=== PATIENT | female | born 1955 | race Caucasian/White ===

== ENCOUNTER 2016-11-26 13:53 | Emergency (ER) | payer OTHER ==
[~2016-11-26] VITALS: Ht 162.6 cm; Wt 79.5 kg
[2016-11-26 13:56] VITALS: BP 150/78; PULSE 92; RESP 22; O2SAT 100
--- NOTE | 2016-11-26 14:09 | ED.REPORT ---
HPI-Chest Pain 40 and Over Date of Service Nov 26, 2016 ED Provider: Michael Dumont MD Patient is a 60 year old female with a history of osteoarthritis, fibromyalgia and panic attacks who presents to the ED complaining of chest pain onset 1230. The patient states that initially thought she was having a panic attack, where she was feeling dizzy, shaky, clammy and faint. Associated symptoms include nausea and headache. Patient denies vomiting, shortness of breath, radiating pain or swelling. The states that she thought it was heart burn so she tried taking some deep breathing but it was not helping her symptoms. The chest pain resolved after about 30 minutes. She states that this felt some what similar to her panic attacks but it was worse and she doesn't generally get clammy or heart burn. Patient denies any recent long travel or illness. Nursing Notes Stated Complaint: DIZZY/NEAR SYNCOPE/CP Chief Complaint: Chest Pain Nursing Notes Reviewed: Yes Allergies: Coded Allergies: Sulfa (Sulfonamide Antibiotics) (Verified Allergy, Severe, Hives, 11/25/14) amoxicillin (Verified Allergy, Mild, Hives, 11/25/14) tetracycline (Verified Allergy, Mild, stomach upset, 11/25/14) General Time Seen by MD: 13:55 Chief Complaint Chest pain Hx Obtained From: Patient Arrived By: Walk-in Sudden in Onset?: Yes Onset Occurred: 1 - 4 hours ago Symptom Duration: 16 - 30 minutes Location: : Substernal Quality: Pressure Radiation: : Does not radiate Migration/Movement: Reports: None Severity: Current: No pain currently Severity: Maximum: Mild Similar Sx Previous: No Past Medical History Past Medical History RA osteoarthritis fibromyalgia Past Surgical History denies Smoking History Never Smoker Social History Other Social History: Good social support, Ambulatory Status Independent Review of Systems Review of Systems Note: +clammy Constitutional: Denies: Chills, Fever Respiratory: Denies: Non-productive cough, Shortness of breath Cardiovascular: Reports: Chest pain GI: Reports: Nausea, Denies: Vomiting Musculoskeletal: Denies: Back pain, Extremity swelling, Neck pain Skin: Denies Itching, Denies Rash Neurologic: Reports: Dizziness, Headache, Lightheaded, Shaking, Denies: Numbness, Weakness Complete sys rev & neg: except as marked. Physical Exam Initial Vital Signs Vital Signs (First) Date Time Temp Pulse Resp B/P Pulse Ox O2 Delivery O2 Flow Rate FiO2 11/26/16 13:56 36.8 92 22 150/78 100 Room Air Initial VS: Reviewed General/Constitutional: Awake, Alert, No acute distress Respiratory / Chest: Atraumatic, Breath sounds NL, Breath sounds = bilat, No respiratory distress Cardiovascular: Regular rhythm, Heart sounds NL, No murmurs Heart Rate / Rhythm: Positive: Tachycardia Abdomen: Atraumatic, Soft, Non-tender Lower Extremity / Pelvis / MS: Atraumatic, No edema Skin: Atraumatic, Color NL, No rash, Warm, Dry Neurologic: Oriented X3, Speech NL, No motor deficits, No sensory deficits Psychiatric: Affect NL, Mood NL Head / Eyes: Atraumatic, Normocephalic, PERRL, EOMI Interpretation & Diagnostics Lab Results Interpretation Result Diagram: 11/26/16 1430 11/26/16 1430 Test 11/26/16 14:30 11/26/16 16:16 White Blood Count 7.6th/mm3 (3.8-10.1) Red Blood Count 4.00mil/mm3 (3.90-5.20) Hemoglobin 11.6g/dL (12.0-15.6) Hematocrit 34.9% (35.0-46.0) Mean Corpuscular Volume 87.3fL (81-100) Mean Corpuscular Hemoglobin 29.0pg (27.0-35.0) Mean Corpuscular Hemoglobin Concent 33.2% (32.0-37.0) Red Cell Distribution Width 13.4% (12.3-15.4) Platelet Count 250bil/L (150-400) Neutrophils (%) (Auto) 70.2% (40-74) Lymphocytes (%) (Auto) 18.2% (14-46) Monocytes (%) (Auto) 9.8% (4-12) Eosinophils (%) (Auto) 1.1% (0-5) Basophils (%) (Auto) 0.4% (0-3) Sodium Level 137mEq/L (134-144) Potassium Level 4.4mEq/L (3.5-5.2) Chloride Level 99mEq/L (97-108) Carbon Dioxide Level 22mmol/L (18-29) Blood Urea Nitrogen 22mg/dL (8-27) Creatinine 1.08mg/dL (0.57-1.00) Estimat Glomerular Filtration Rate 74mL/min (>59) Glucose Level 92mg/dL (60-99) Calcium Level 9.9mg/dL (8.5-10.1) Magnesium Level 1.8mg/dL (1.6-2.6) Total Bilirubin 0.4mg/dL (0.0-1.2) Aspartate Amino Transf (AST/SGOT) 23U/L (0-50) Alanine Aminotransferase (ALT/SGPT) 19U/L (0-32) Alkaline Phosphatase 150U/L (25-165) Total Protein 7.9g/dL (6.4-8.4) Albumin 4.2g/dL (3.4-5.0) Troponin T < 0.010ug/L (0.0-0.011) ECG Interpretation ECG Interpretation: No ST changes Time: 14:03 Interpreted by: ED physician Normal ECG Interpretation: Normal rate (85), Normal sinus rhythm X-Ray Chest Interpretation Chest Xray Interpretation: IMPRESSION: No acute or active disease is seen in the upright portable chest. Dictated by: Augusto Serrato M.D. on 11/26/2016 at 14:21 Approved by: Augusto Serrato M.D. on 11/26/2016 at 14:22 View: Portable, 1 view Interpretation / Wet Read by: Interpret - Radiologist Re-Eval/Medical Decision Med Decision/Clinical Course 60-year-old female history of panic attacks presenting with 30 minute episodes of anxiety, chest pressure, shortness of breath. She thought it was likely a panic attack but thought she should come in for evaluation. Her vital signs are stable. No EKG changes. Her troponins are negative 2. He has no risk factors for blood clot. She is not tachycardic. Discussed with the patient she requests to go home and follow up with her primary doctor. She may benefit from outpatient stress test. She will return if she has any recurrent chest pain, difficulty breathing, any other new or worsening symptoms. Time of Eval: 16:55 Re-Evaluation/Progress Note: Discussed all results and plan for discharge. Patient understands and agrees to plan. All questions were addressed. Counseled Regarding: Diagnosis, Lab results, Need for follow-up, When/why to return to ED Discharge & Departure Primary Impression: Chest pressure Disposition: Home Discharge Condition All VS Reviewed: Yes Condition: Stable Patient Instructions: Chest Pain (ED) Additional Instructions: Your labs and chest X-ray were normal and reassuring. There was no evidence of a heart attack. It is possible this was a panic attack. An immediately dangerous cause for your symptoms was not identified today. Follow up with your primary care physician later this week. Return to the emergency department if you develop any new or concerning symptoms including chest pain that radiates into your arm, shortness of breath or sweatiness. Referrals: Edward Pang MD (PCP) Scribe Attestation Portions of this note were transcribed by Gifty Da Silva. I, Dr. Dumont personally performed the history, physical exam and medical decision-making; I reviewed and confirmed the accuracy of the information in the transcribed note. Signed by: Aimee Urena, 11/26/16 copies to: Edward Pang MD, Ben M MD Nov 26, 2016 14:09 Cata Da Silva Nov 26, 2016 14:21
--- NOTE | 2016-11-26 14:24 | DRSVH ---
PROCEDURE: X-RAY CHEST ONE VIEW, PORTABLE ([id number]) INDICATIONS: CHEST PAIN, dizziness TECHNIQUE: One view of the chest was acquired. COMPARISON: [facility], CR, XR CHEST 1VW (PORTABLE), 11/25/2014, 11:48. FINDINGS: Surgical changes and devices: religion instructor leads are seen over the chest. Lungs and pleura: No pleural effusions or pneumothorax. Lungs are clear. Mediastinum: Mediastinal contours appear normal. Heart size is normal. Bones and chest wall: No suspicious bony lesions. Overlying soft tissues appear unremarkable. IMPRESSION: No acute or active disease is seen in the upright portable chest. Dictated by: Augusto Serrato M.D. on 11/26/2016 at 14:21 Approved by: Augusto Serrato M.D. on 11/26/2016 at 14:22
[2016-11-26 14:52] LABS: BASOPHILS % (AUTO) 0.4 % (0-3); EOSINOPHILS % (AUTO) 1.1 % (0-5); MONOCYTES % (AUTO) 9.8 % (4-12); Mean Corpuscular Volume 87.3 fL (81-100); NEUTROPHILS % (AUTO) 70.2 % (40-74); Platelet Count 250 bil/L (150-400)
[2016-11-26 15:01] VITALS: BP 151/82; PULSE 87; RESP 18; O2SAT 97
[2016-11-26 15:05] LABS: TROPONIN T < 0.010 ug/L (0.0-0.011)
[2016-11-26 15:16] LABS: Magnesium 1.8 mg/dL (1.6-2.6)
[2016-11-26 17:09] VITALS: BP 158/83; PULSE 77; RESP 17; O2SAT 100
== END 2016-11-26 17:11 | disposition home or self-care (01) ==
LOC: SED 13:53
DX: R07.89 Other chest pain (principal); Z88.1 Allergy status to other antibiotic agents; Z88.2 Allergy status to sulfonamides; Z88.0 Allergy status to penicillin